=== PATIENT | male | born 1945 | race Caucasian/White ===

== ENCOUNTER 2017-06-14 13:50 | Outpatient (CLI) | payer MEDICARE, OTHER ==
[2013-02-19 14:30] VITALS: BP 109/68
== END 2017-06-14 13:52 ==
LOC: POD 13:50
PROVIDERS: ATTEND Podiatrist
DX: E11.42 Type 2 diabetes mellitus with diabetic polyneuropathy (principal); G60.3 Idiopathic progressive neuropathy; M79.671 Pain in right foot
CPT/HCPCS: G0463

== ENCOUNTER 2017-07-22 13:07 | Outpatient (CLI) | payer MEDICARE, OTHER ==
[2013-02-19 14:30] VITALS: BP 109/68
== END 2017-07-22 13:10 ==
LOC: POD 13:07
PROVIDERS: ATTEND Podiatrist
DX: M77.52 Other enthesopathy of left foot and ankle (principal); E11.42 Type 2 diabetes mellitus with diabetic polyneuropathy
CPT/HCPCS: 20605; G0463

== ENCOUNTER 2017-08-16 13:11 | Outpatient (CLI) | payer MEDICARE, OTHER ==
[2013-02-19 14:30] VITALS: BP 109/68
== END 2017-08-16 13:12 ==
LOC: POD 13:11
PROVIDERS: ATTEND Podiatrist
DX: M77.52 Other enthesopathy of left foot and ankle (principal)
CPT/HCPCS: G0463

== ENCOUNTER 2017-11-15 12:41 | Outpatient (CLI) | payer MEDICARE, OTHER ==
[2013-02-19 14:30] VITALS: BP 109/68
== END 2017-11-15 12:42 ==
LOC: POD 12:41
PROVIDERS: ATTEND Podiatrist
DX: E11.42 Type 2 diabetes mellitus with diabetic polyneuropathy (principal); G60.3 Idiopathic progressive neuropathy; M77.52 Other enthesopathy of left foot and ankle; S90.852A Superficial foreign body, left foot, initial encounter
CPT/HCPCS: G0463

== ENCOUNTER 2017-11-18 08:55 | Outpatient (CLI) | payer MEDICARE, OTHER ==
[2013-02-19 14:30] VITALS: BP 109/68
== END 2017-11-18 08:56 ==
LOC: LAB 08:55
PROVIDERS: ATTEND Nurse Practitioner Family
DX: N18.9 Chronic kidney disease, unspecified (principal)
CPT/HCPCS: 36415; 82575; 84156

== ENCOUNTER 2018-01-20 13:05 | Outpatient (CLI) | payer MEDICARE, OTHER ==
[2013-02-19 14:30] VITALS: BP 109/68
== END 2018-01-20 13:06 ==
LOC: POD 13:05
PROVIDERS: ATTEND Podiatrist
DX: E11.42 Type 2 diabetes mellitus with diabetic polyneuropathy (principal); G60.3 Idiopathic progressive neuropathy; M77.52 Other enthesopathy of left foot and ankle; S90.852A Superficial foreign body, left foot, initial encounter; Y99.9 Unspecified external cause status
CPT/HCPCS: G0463

== ENCOUNTER 2018-02-21 12:45 | Outpatient (CLI) | payer MEDICARE, OTHER ==
[2013-02-19 14:30] VITALS: BP 109/68
== END 2018-02-21 12:46 ==
LOC: POD 12:45
PROVIDERS: ATTEND Podiatrist
DX: M67.472 Ganglion, left ankle and foot (principal)
CPT/HCPCS: G0463

== ENCOUNTER 2018-03-08 07:37 | Outpatient (CLI) | payer MEDICARE, OTHER ==
[2013-02-19 14:30] VITALS: BP 109/68
== END 2018-03-08 07:40 ==
LOC: LAB 07:37
PROVIDERS: ATTEND Internal Medicine Endocrinology, Diabetes & Metabolism
DX: L74.9 Eccrine sweat disorder, unspecified (principal); E11.9 Type 2 diabetes mellitus without complications
CPT/HCPCS: 36415; 84402; 84403

== ENCOUNTER 2018-10-16 11:17 | Outpatient (CLI) | payer MEDICARE, OTHER ==
[2013-02-19 14:30] VITALS: BP 109/68
--- NOTE | 2018-10-16 13:26 | Diagnostic Imaging Report ---
INDERJIT MCWILLIAMS [facility] [address] [facility] [address] [address] Report Submission Date: Oct 16, 2018 11:58:42 AM PARK MANAGER Patient Study Name: MONI OLEA Date: Oct 16, 2018 11:17:54 AM PARK MANAGER Modality Type: DX Gender: M Description: LOWER EXTREMITY : 47 Institution: [facility] Physician: INDERJIT MCWILLIAMS Examination: Plain film right foot History: Pt states pain to the medial side, pad region of fore foot. Pt denies trauma. Pain x's 3 weeks (Hx) Findings: 3 views of the right foot demonstrates osteopenia. Articular degenerative changes. No acute cortical abnormality. Calcaneal spurs. No soft tissue abnormality. Impression: Osteopenia and degenerative changes. No acute appearing cortical abnormality. Electronically signed on Oct 16, 2018 11:58:42 AM PARK MANAGER by: Hitesh IBARRA
== END 2018-10-16 11:20 ==
LOC: RAD 11:17
PROVIDERS: ATTEND Podiatrist Foot & Ankle Surgery
DX: M85.871 Other specified disorders of bone density and structure, right ankle and foot (principal); M24.174 Other articular cartilage disorders, right foot; M79.671 Pain in right foot; M76.821 Posterior tibial tendinitis, right leg
CPT/HCPCS: 73630

== ENCOUNTER 2019-04-16 14:26 | Outpatient (CLI) | payer MEDICARE, OTHER ==
[2013-02-19 14:30] VITALS: BP 109/68
--- NOTE | 2019-04-16 17:02 | Diagnostic Imaging Report ---
INDERJIT MCWILLIAMS [facility] [address] [facility] [address] [address] Report Submission Date: Apr 16, 2019 4:59:06 PM CDT Patient Study Name: MONI OLEA Date: Apr 16, 2019 2:30:15 PM CDT Modality Type: DX Gender: M Description: FOOT 3 VIEWS OR MORE : 47 Institution: [facility] Physician: INDERJIT MCWILLIAMS Exam: Left foot. History: Heel pain. AP, lateral and oblique view of the left foot are submitted. The visualized bony elements are grossly intact without signs of acute fracture or dislocation. Degenerate changes at the interphalangeal joints are noted. Spur off the plantar surface of the calcaneus is noted. Impression: Heel spurs. Degenerative changes. Electronically signed on Apr 16, 2019 4:59:06 PM CDT by: Bayron IBARRA
== END 2019-04-16 14:28 ==
LOC: RAD 14:26
PROVIDERS: ATTEND Podiatrist Foot & Ankle Surgery
DX: M79.672 Pain in left foot (principal)
CPT/HCPCS: 73630

== ENCOUNTER 2019-08-01 16:00 | Outpatient (CLI) | payer MEDICARE, OTHER ==
[2013-02-19 14:30] VITALS: BP 109/68
[2019-08-01 16:46] LABS: eGFR (Non-African) > 60
[2019-08-01 16:52] LABS: APPEARANCE,URINE CLEAR (CLEAR); COLOR,URINE YELLOW (YELLOW); OCCULT BLOOD,URINE NEGATIVE (NEGATIVE); UROBILINOGEN URINE 0.2 Eu (0.2-1.0)
== END 2019-08-01 16:05 ==
LOC: LAB 16:00
PROVIDERS: ATTEND Nurse Practitioner Family
DX: R10.84 Generalized abdominal pain (principal); R30.0 Dysuria
CPT/HCPCS: 36415; 80053; 81002; 87086